=== PATIENT | male | born 1945 | race Caucasian/White ===

== ENCOUNTER 2017-01-01 16:52 | Emergency (ER) | payer MEDICARE, OTHER ==
[~2017-01-01] VITALS: Ht 172.7 cm; Wt 76.4 kg
[2017-01-01] MEDS ORDERED: GUAI200T6 PO (17:09)
[2017-01-01] MEDS ORDERED: SYMB16INH INH (17:09)
[2017-01-01] MEDS ORDERED: DOXA1TAB41 PO (17:09)
[2017-01-01] MEDS ORDERED: ATOR80TA59 PO (17:09)
[2017-01-01] MEDS ORDERED: BUDEPOW26 (17:09)
[2017-01-01] MEDS ORDERED: ASPI1TAB PO (17:09)
[2017-01-01] MEDS ORDERED: METF10004 PO (17:09)
[2017-01-01] MEDS ORDERED: LISI-542 PO (17:09)
[2017-01-01] MEDS ORDERED: SPIR1CAP INH (17:09)
[2017-01-01] MEDS ORDERED: ESOM1CAP5 PO (17:09)
[2017-01-01] MEDS ORDERED: DOXY100C37 PO (18:35)
[2017-01-01 18:55] VITALS: BP 149/78
== END 2017-01-01 19:27 | disposition home or self-care (01) ==
LOC: M ED 16:52
DX: S40.861A Insect bite (nonvenomous) of right upper arm, initial encounter (principal); W57.XXXA Bitten or stung by nonvenomous insect and other nonvenomous arthropods, initial encounter; Y92.89 Other specified places as the place of occurrence of the external cause; Y93.89 Activity, other specified; Y99.8 Other external cause status; I10 Essential (primary) hypertension; J45.909 Unspecified asthma, uncomplicated; Z79.899 Other long term (current) drug therapy; Z79.82 Long term (current) use of aspirin; Z88.8 Allergy status to other drugs, medicaments and biological substances; Z87.891 Personal history of nicotine dependence

== ENCOUNTER → 2021-06-09 | Outpatient (CLI) | payer MEDICARE, OTHER ==
[~2021-06-09] MED LIST: ASPI81TA26 PO; ATOR80TA59 PO; BUDEPOW26; DOXA1TAB41 PO; DOXY-443 PO; ESOM1CAP5 PO; GUAI200T6 PO; LISI5TAB11 PO; METF10004 PO; SPIR1CAP INH; SYMB16INH INH
== END ==
LOC: M RAD 12:12
PROVIDERS: ATTEND Physician Assistant
DX: I65.21 Occlusion and stenosis of right carotid artery (principal)

== ENCOUNTER 2021-07-11 08:56 | Emergency (ER) | payer MEDICARE, OTHER ==
[~2021-07-11] VITALS: Ht 170.2 cm; Wt 74.1 kg
[2021-07-11] MEDS ORDERED: OMEP20TA17 (09:10)
[2021-07-11] MEDS ORDERED: NESI12.5 PO (09:10)
[2021-07-11 10:06] LABS: BASO % 0.4 % (0.0-1.0); EOS # 0.2 10^3/uL (0.0-0.5); EOS % 2.1 % (0.0-3.0); HEMATOCRIT 42.8 % (42.0-52.0); HEMOGLOBIN 13.6 g/dl (13.5-17.5); LYMPH # 1.9 10^3/uL (1.5-5.0); LYMPH % 17.4 % (24.0-44.0); MEAN CORPUSCULAR HEMOGLOBIN 29.6 pg (27.0-33.0); MEAN CORPUSCULAR HGB CONC 31.8 g/dl (32.0-36.5); MONO # 0.6 10^3/uL (0.0-0.8); MONO % 5.4 % (2.0-8.0); NEUTROPHILS # 7.9 10^3/uL (1.5-8.5); NEUTROPHILS % 73.7 % (36.0-66.0); PLATELET COUNT, AUTOMATED 281 10^3/uL (150-450); WHITE BLOOD COUNT 10.7 10^3/uL (4.0-10.0)
[2021-07-11 10:49] LABS: BLOOD UREA NITROGEN 13 MG/DL (7-18); CALCIUM LEVEL 9.1 MG/DL (8.8-10.2); CARBON DIOXIDE LEVEL 28 MEQ/L (21-32); CHLORIDE LEVEL 106 MEQ/L (98-107); CREATININE FOR GFR 1.14 MG/DL (0.70-1.30); GLOMERULAR FILTRATION RATE > 60.0 (>42); GLUCOSE, FASTING 217 MG/DL (70-100); POTASSIUM SERUM 3.5 MEQ/L (3.5-5.1); SODIUM LEVEL 141 MEQ/L (136-145)
[2021-07-11 12:01] VITALS: BP 137/71
== END 2021-07-11 12:03 | disposition home or self-care (01) ==
LOC: M ED 08:56
DX: R55 Syncope and collapse (principal); I10 Essential (primary) hypertension; E11.9 Type 2 diabetes mellitus without complications; J44.9 Chronic obstructive pulmonary disease, unspecified; I25.10 Atherosclerotic heart disease of native coronary artery without angina pectoris; E78.5 Hyperlipidemia, unspecified; Z88.4 Allergy status to anesthetic agent; Z79.899 Other long term (current) drug therapy; Z79.82 Long term (current) use of aspirin; Z79.84 Long term (current) use of oral hypoglycemic drugs

== ENCOUNTER → 2022-04-23 | Outpatient (CLI) | payer MEDICARE, OTHER ==
[~2022-04-23] MED LIST changes: +NESI12.5 PO; +OMEP20TA17
== END ==
LOC: M RAD 13:25
PROVIDERS: ATTEND Physician Assistant
DX: I65.21 Occlusion and stenosis of right carotid artery (principal)

== ENCOUNTER → 2022-05-15 | Outpatient (CLI) | payer MEDICARE, OTHER ==
[2022-05-15 16:27] LABS: BLOOD UREA NITROGEN 19 MG/DL (9-23); CALCIUM LEVEL 9.8 MG/DL (8.3-10.6); CARBON DIOXIDE LEVEL 31 MMOL/L (20-31); CHLORIDE LEVEL 102 MMOL/L (98-107); CREATININE FOR GFR 0.83 MG/DL (0.70-1.30); GLOMERULAR FILTRATION RATE > 60.0 (>42); GLUCOSE, FASTING 153 MG/DL (74-106); POTASSIUM SERUM 4.6 MMOL/L (3.5-5.1); SODIUM LEVEL 138 MMOL/L (136-145)
== END ==
LOC: M PLALAB 12:57
PROVIDERS: ATTEND Physician Assistant
DX: R09.89 Other specified symptoms and signs involving the circulatory and respiratory systems (principal)

== ENCOUNTER → 2022-05-19 | Outpatient (CLI) | payer MEDICARE, OTHER ==
[~2022-05-19] MED LIST changes: +ISOVUE-370 76% 100ML VIAL As Ordered ONE
== END ==
LOC: M RAD 13:23
PROVIDERS: ATTEND Physician Assistant
DX: R09.89 Other specified symptoms and signs involving the circulatory and respiratory systems (principal)
CPT/HCPCS: 70498; Q9967

== ENCOUNTER 2022-06-17 10:29 | Inpatient (IN) | payer MEDICARE, OTHER ==
[~2022-06-17] VITALS: Ht 172.7 cm; Wt 65.8 kg
[~2022-06-17 10:29] MED LIST changes: -ISOVUE-370 76% 100ML VIAL As Ordered ONE
[2022-06-17] MEDS ORDERED: OMEP40CA4 PO (10:44)
[2022-06-17 12:05] LABS: BASO % 0.2 % (0.0-1.0); EOS # 0.1 10^3/uL (0.0-0.5); HEMATOCRIT 42.1 % (42.0-52.0); HEMOGLOBIN 13.5 g/dl (13.5-17.5); LYMPH # 2.1 10^3/uL (1.5-5.0); LYMPH % 18.6 % (24.0-44.0); MEAN CORPUSCULAR HEMOGLOBIN 29.3 pg (27.0-33.0); MEAN CORPUSCULAR HGB CONC 32.1 g/dl (32.0-36.5); MEAN CORPUSCULAR VOLUME 91.3 fl (80.0-96.0); MONO # 0.6 10^3/uL (0.0-0.8); MONO % 5.2 % (2.0-8.0); NEUTROPHILS # 8.4 10^3/uL (1.5-8.5); NEUTROPHILS % 74.6 % (36.0-66.0); PLATELET COUNT, AUTOMATED 237 10^3/uL (150-450); RED BLOOD COUNT 4.61 10^6/uL (4.30-6.10); WHITE BLOOD COUNT 11.3 10^3/uL (4.0-10.0)
[2022-06-17 12:15] LABS: INR 0.98; PROTHROMBIN TIME 13.2 SECONDS (12.5-14.5)
[2022-06-17 12:16] LABS: PARTIAL THROMBOPLASTIN TIME 29.6 SECONDS (24.8-34.2)
[2022-06-17 12:27] LABS: ERYTHROCYTE SEDIMENTATION RATE 27 mm/hr (0-20)
[2022-06-17 12:48] LABS: RSV AMPLIFICATION NEGATIVE (NEGATIVE)
[2022-06-17 13:35] LABS: CK-MB VALUE MASS < 1.0 NG/ML (<3.6); LIPASE 18 U/L (12-53)
[2022-06-17 13:37] LABS: C REACTIVE PROTEIN QUANTITATIV < 0.40 MG/DL (<1.0); CPK CREATINE PHOSPHOKINASE 55 U/L (46-171); MB/CK RELATIVE INDEX 1.81 (< OR =4)
[2022-06-17 13:39] LABS: THYROID STIMULATING HORMONE 2.363 uIU/ML (0.55-4.78)
[2022-06-17 13:40] LABS: ALBUMIN 3.8 G/DL (3.2-5.2); ALKALINE PHOSPHATASE 59 U/L (46-116); ALT/SGPT 23 U/L (7.0-40); AST/SGOT 14 U/L (<34); BILIRUBIN,DIRECT 0.2 MG/DL (<0.4); BILIRUBIN,TOTAL 0.6 MG/DL (0.3-1.2); BLOOD UREA NITROGEN 14 MG/DL (9-23); CALCIUM LEVEL 9.1 MG/DL (8.3-10.6); CARBON DIOXIDE LEVEL 26 MMOL/L (20-31); CHLORIDE LEVEL 106 MMOL/L (98-107); CREATININE FOR GFR 0.68 MG/DL (0.70-1.30); GLOMERULAR FILTRATION RATE > 60.0 (>42); GLUCOSE, FASTING 105 MG/DL (74-106); POTASSIUM SERUM 4.2 MMOL/L (3.5-5.1); SODIUM LEVEL 139 MMOL/L (136-145); TOTAL PROTEIN 6.7 G/DL (5.7-8.2)
[2022-06-17 14:40] LABS: CK-MB VALUE MASS < 1.0 NG/ML (<3.6)
[2022-06-17 14:41] LABS: CPK CREATINE PHOSPHOKINASE 55 U/L (46-171); MB/CK RELATIVE INDEX 1.81 (< OR =4)
[2022-06-17] MEDS ORDERED: ISOVUE-370 76% 100ML VIAL As Ordered ONE (15:26)
[2022-06-17] MEDS: INSULIN LISPRO (NovoLOG) PER UNIT SC SCH ×2 (17:30→20:22)
[2022-06-17] MEDS ORDERED: GLUCOSE 4GM CHEW TABLET PO PRN (18:10)
[2022-06-17] MEDS ORDERED: GLUCAGON INJ 1MG VIAL SC PRN (18:10)
[2022-06-17] MEDS ORDERED: DEXTROSE 50% 50ML SYRINGE IV PRN (18:10)
[2022-06-17] MEDS: LEVEMIR (INSULIN DETEMIR) 1 UNITS/0.01ML SC SCH ×2 (18:10→20:23)
[2022-06-17] MEDS ORDERED: IPRATROPIUM 0.5MG/ALBUTEROL 2.5MG INH SOL UD 3ML (DUONEB) NEB PRN (18:35)
[2022-06-17] MEDS ORDERED: HOME MED LIST COMPLETE! XX SCH (18:55)
[2022-06-17] MEDS ORDERED: CARVedilol 12.5 MG TAB PO ONE (19:30)
[2022-06-17] MEDS ORDERED: CLOPIDOGREL 75 MG TAB PO ONE (19:40)
[2022-06-17 19:56] VITALS: BP 137/69
[2022-06-17 20:00] VITALS: BP 137/69
[2022-06-17] MEDS ORDERED: IPRATROPIUM 0.5MG/ALBUTEROL 2.5MG INH SOL UD 3ML (DUONEB) NEB SCH (20:00)
[2022-06-17] MEDS: OMEPRAZOLE 20MG CAP PO SCH (20:20)
[2022-06-17] MEDS: ATORVASTATIN 20 MG TAB PO SCH (20:21)
[2022-06-17] MEDS: CARVedilol 12.5 MG TAB PO SCH (20:21)
[2022-06-17 23:47] VITALS: BP 129/66
[2022-06-18] VITALS (7 sets, daily range): BP systolic 122–151; BP diastolic 59–72
[2022-06-18 06:13] LABS: HEMATOCRIT 40.7 % (42.0-52.0); HEMOGLOBIN 13.1 g/dl (13.5-17.5); MEAN CORPUSCULAR HEMOGLOBIN 29.2 pg (27.0-33.0); MEAN CORPUSCULAR HGB CONC 32.2 g/dl (32.0-36.5); MEAN CORPUSCULAR VOLUME 90.8 fl (80.0-96.0); PLATELET COUNT, AUTOMATED 220 10^3/uL (150-450); RED BLOOD COUNT 4.48 10^6/uL (4.30-6.10); WHITE BLOOD COUNT 9.1 10^3/uL (4.0-10.0)
[2022-06-18 06:35] LABS: BLOOD UREA NITROGEN 13 MG/DL (9-23); CALCIUM LEVEL 9.4 MG/DL (8.3-10.6); CARBON DIOXIDE LEVEL 26 MMOL/L (20-31); CHLORIDE LEVEL 103 MMOL/L (98-107); CHOLESTEROL LEVEL 78 MG/DL (<200); CHOLESTEROL RISK RATIO 2.43 (<5); CREATININE FOR GFR 0.79 MG/DL (0.70-1.30); GLOMERULAR FILTRATION RATE > 60.0 (>42); GLUCOSE, FASTING 115 MG/DL (74-106); HEMOGLOBIN A1c 6.7 % (4.0-6.0); LDL CHOLESTEROL 22.2 MG/DL (<100); POTASSIUM SERUM 4.1 MMOL/L (3.5-5.1); SODIUM LEVEL 138 MMOL/L (136-145); TRIGLYCERIDES LEVEL 119 MG/DL (<150)
[2022-06-18] MEDS ORDERED: COMBIVENT RESPIMAT 100-20MCG INHALER 4GM INH PRN (07:30)
[2022-06-18] MEDS ORDERED: TIOTROPIUM INHALER/CAPSULE (SPIRIVA) INH SCH (08:00)
[2022-06-18] MEDS: SYMBICORT 160/4.5MCG INHALER 6GM INH SCH ×2 (08:03→19:27)
[2022-06-18] MEDS: ASPIRIN 81MG ENTERIC TABLET PO SCH (08:28)
[2022-06-18] MEDS: CARVedilol 12.5 MG TAB PO SCH ×2 (08:29→19:51)
[2022-06-18] MEDS: CLOPIDOGREL 75 MG TAB PO SCH (08:29)
[2022-06-18] MEDS: INSULIN LISPRO (NovoLOG) PER UNIT SC SCH ×4 (08:33→19:55)
[2022-06-18] MEDS ORDERED: MECLIZINE 25 MG TABLET PO PRN (18:05)
[2022-06-18] MEDS: LEVEMIR (INSULIN DETEMIR) 1 UNITS/0.01ML SC SCH (19:56)
[2022-06-18] MEDS: OMEPRAZOLE 20MG CAP PO SCH (20:36)
[2022-06-18] MEDS: ATORVASTATIN 20 MG TAB PO SCH (20:36)
[2022-06-19 04:14] VITALS: BP 126/72
[2022-06-19 05:40] LABS: HEMATOCRIT 39.9 % (42.0-52.0); HEMOGLOBIN 13.2 g/dl (13.5-17.5); MEAN CORPUSCULAR HEMOGLOBIN 29.8 pg (27.0-33.0); MEAN CORPUSCULAR HGB CONC 33.1 g/dl (32.0-36.5); MEAN CORPUSCULAR VOLUME 90.1 fl (80.0-96.0); PLATELET COUNT, AUTOMATED 240 10^3/uL (150-450); RED BLOOD COUNT 4.43 10^6/uL (4.30-6.10); WHITE BLOOD COUNT 9.5 10^3/uL (4.0-10.0)
[2022-06-19 06:07] LABS: BLOOD UREA NITROGEN 18 MG/DL (9-23); CALCIUM LEVEL 9.3 MG/DL (8.3-10.6); CARBON DIOXIDE LEVEL 26 MMOL/L (20-31); CHLORIDE LEVEL 105 MMOL/L (98-107); CREATININE FOR GFR 0.85 MG/DL (0.70-1.30); GLOMERULAR FILTRATION RATE > 60.0 (>42); GLUCOSE, FASTING 128 MG/DL (74-106); POTASSIUM SERUM 4.2 MMOL/L (3.5-5.1); SODIUM LEVEL 139 MMOL/L (136-145)
[2022-06-19] MEDS: SYMBICORT 160/4.5MCG INHALER 6GM INH SCH ×2 (07:24→19:51)
[2022-06-19 08:12] VITALS: BP 138/69
[2022-06-19] MEDS: ASPIRIN 81MG ENTERIC TABLET PO SCH (08:16)
[2022-06-19] MEDS: CLOPIDOGREL 75 MG TAB PO SCH (08:17)
[2022-06-19] MEDS: CARVedilol 12.5 MG TAB PO SCH ×3 (08:17→18:42)
[2022-06-19] MEDS: INSULIN LISPRO (NovoLOG) PER UNIT SC SCH ×4 (08:18→20:40)
[2022-06-19 12:00] VITALS: BP 160/72
[2022-06-19 15:57] VITALS: BP 126/72
[2022-06-19 19:50] VITALS: BP 126/64
[2022-06-19] MEDS: LEVEMIR (INSULIN DETEMIR) 1 UNITS/0.01ML SC SCH (20:41)
[2022-06-19] MEDS: OMEPRAZOLE 20MG CAP PO SCH (20:49)
[2022-06-19] MEDS: ATORVASTATIN 20 MG TAB PO SCH (20:50)
[2022-06-20] VITALS (8 sets, daily range): BP systolic 135–158; BP diastolic 64–70
[2022-06-20] MEDS: CARVedilol 12.5 MG TAB PO SCH ×2 (06:00)
[2022-06-20 06:39] LABS: HEMATOCRIT 39.3 % (42.0-52.0); HEMOGLOBIN 12.7 g/dl (13.5-17.5); MEAN CORPUSCULAR HEMOGLOBIN 29.7 pg (27.0-33.0); MEAN CORPUSCULAR HGB CONC 32.3 g/dl (32.0-36.5); MEAN CORPUSCULAR VOLUME 91.8 fl (80.0-96.0); PLATELET COUNT, AUTOMATED 234 10^3/uL (150-450); RED BLOOD COUNT 4.28 10^6/uL (4.30-6.10); WHITE BLOOD COUNT 9.4 10^3/uL (4.0-10.0)
[2022-06-20 06:58] LABS: BLOOD UREA NITROGEN 19 MG/DL (9-23); CALCIUM LEVEL 9.2 MG/DL (8.3-10.6); CARBON DIOXIDE LEVEL 26 MMOL/L (20-31); CHLORIDE LEVEL 106 MMOL/L (98-107); GLOMERULAR FILTRATION RATE > 60.0 (>42); GLUCOSE, FASTING 138 MG/DL (74-106); POTASSIUM SERUM 4.3 MMOL/L (3.5-5.1); SODIUM LEVEL 140 MMOL/L (136-145)
[2022-06-20] MEDS: SYMBICORT 160/4.5MCG INHALER 6GM INH SCH ×2 (07:11→19:54)
[2022-06-20] MEDS: ASPIRIN 81MG ENTERIC TABLET PO SCH (07:33)
[2022-06-20] MEDS: INSULIN LISPRO (NovoLOG) PER UNIT SC SCH ×4 (07:33→20:29)
[2022-06-20] MEDS: CLOPIDOGREL 75 MG TAB PO SCH (07:34)
[2022-06-20 09:32] LABS: MAGNESIUM LEVEL 1.6 MG/DL (1.8-2.4)
[2022-06-20] MEDS ORDERED: MAG SULF 1GM/100ML (MAG RUN) 1 GM in IV 1 EA IV ONE ×2 (10:00→18:55)
[2022-06-20] MEDS ORDERED: CALCIUM GLUCONATE 1,000 MG in D5W MINI-BAG PLUS 100 ML IV ONE (19:00)
[2022-06-20 19:55] LABS: CK-MB VALUE MASS < 1.0 NG/ML (<3.6); POTASSIUM SERUM 4.3 MMOL/L (3.5-5.1)
[2022-06-20 19:57] LABS: CPK CREATINE PHOSPHOKINASE 75 U/L (46-171); MB/CK RELATIVE INDEX 1.33 (< OR =4)
[2022-06-20] MEDS: **hydrALAZINE** 10 MG TAB PO SCH (20:22)
[2022-06-20] MEDS: LEVEMIR (INSULIN DETEMIR) 1 UNITS/0.01ML SC SCH (20:29)
[2022-06-20] MEDS: ATORVASTATIN 20 MG TAB PO SCH (20:33)
[2022-06-20] MEDS: MAGNESIUM OXIDE 400MG TAB (MAG-OX) PO SCH (20:33)
[2022-06-20] MEDS: OMEPRAZOLE 20MG CAP PO SCH (20:33)
[2022-06-21] VITALS (10 sets, daily range): BP systolic 130–156; BP diastolic 52–78
[2022-06-21 04:30] LABS: HEMATOCRIT 39.6 % (42.0-52.0); HEMOGLOBIN 13.1 g/dl (13.5-17.5); MEAN CORPUSCULAR HGB CONC 33.1 g/dl (32.0-36.5); MEAN CORPUSCULAR VOLUME 90.6 fl (80.0-96.0); PLATELET COUNT, AUTOMATED 251 10^3/uL (150-450); RED BLOOD COUNT 4.37 10^6/uL (4.30-6.10); WHITE BLOOD COUNT 11.7 10^3/uL (4.0-10.0)
[2022-06-21 04:55] LABS: BLOOD UREA NITROGEN 20 MG/DL (9-23); CALCIUM LEVEL 8.8 MG/DL (8.3-10.6); CARBON DIOXIDE LEVEL 28 MMOL/L (20-31); CHLORIDE LEVEL 105 MMOL/L (98-107); CREATININE FOR GFR 0.79 MG/DL (0.70-1.30); GLOMERULAR FILTRATION RATE > 60.0 (>42); GLUCOSE, FASTING 144 MG/DL (74-106); POTASSIUM SERUM 4.3 MMOL/L (3.5-5.1); SODIUM LEVEL 138 MMOL/L (136-145)
[2022-06-21] MEDS: SYMBICORT 160/4.5MCG INHALER 6GM INH SCH ×2 (07:16→19:24)
[2022-06-21] MEDS: INSULIN LISPRO (NovoLOG) PER UNIT SC SCH ×4 (07:49→21:00)
[2022-06-21] MEDS: **hydrALAZINE** 10 MG TAB PO SCH ×5 (07:49→21:00)
[2022-06-21] MEDS: MAGNESIUM OXIDE 400MG TAB (MAG-OX) PO SCH ×2 (07:50→21:19)
[2022-06-21] MEDS: CLOPIDOGREL 75 MG TAB PO SCH (07:50)
[2022-06-21] MEDS: ASPIRIN 81MG ENTERIC TABLET PO SCH (07:50)
[2022-06-21] MEDS ORDERED: KETOROLAC 30 MG/ML 1ML VIAL IV ONE (09:00)
[2022-06-21] MEDS ORDERED: HYDROMORPHONE HCL 0.5 MG/ 0.5 ML SYRINGE IV ONE (09:00)
[2022-06-21] MEDS: LEVEMIR (INSULIN DETEMIR) 1 UNITS/0.01ML SC SCH (21:00)
[2022-06-21] MEDS: ATORVASTATIN 20 MG TAB PO SCH (21:18)
[2022-06-21] MEDS: OMEPRAZOLE 20MG CAP PO SCH (21:18)
[2022-06-22] VITALS (10 sets, daily range): BP systolic 120–164; BP diastolic 52–71
[2022-06-22 05:30] LABS: HEMATOCRIT 40.9 % (42.0-52.0); HEMOGLOBIN 13.2 g/dl (13.5-17.5); MEAN CORPUSCULAR HEMOGLOBIN 29.3 pg (27.0-33.0); MEAN CORPUSCULAR HGB CONC 32.3 g/dl (32.0-36.5); MEAN CORPUSCULAR VOLUME 90.9 fl (80.0-96.0); PLATELET COUNT, AUTOMATED 245 10^3/uL (150-450)
[2022-06-22 05:57] LABS: BLOOD UREA NITROGEN 17 MG/DL (9-23); CARBON DIOXIDE LEVEL 28 MMOL/L (20-31); CHLORIDE LEVEL 105 MMOL/L (98-107); CREATININE FOR GFR 0.73 MG/DL (0.70-1.30); GLOMERULAR FILTRATION RATE > 60.0 (>42); GLUCOSE, FASTING 131 MG/DL (74-106); POTASSIUM SERUM 4.3 MMOL/L (3.5-5.1); SODIUM LEVEL 139 MMOL/L (136-145)
[2022-06-22] MEDS ORDERED: D5W/0.45% SODIUM CHLORIDE 1,000 ML IV SCH (06:00)
[2022-06-22] MEDS: INSULIN LISPRO (NovoLOG) PER UNIT SC SCH ×4 (07:30→21:00)
[2022-06-22] MEDS: SYMBICORT 160/4.5MCG INHALER 6GM INH SCH ×2 (07:46→19:56)
[2022-06-22] MEDS: **hydrALAZINE** 10 MG TAB PO SCH ×2 (08:49→17:18)
[2022-06-22] MEDS: ASPIRIN 81MG ENTERIC TABLET PO SCH (08:50)
[2022-06-22] MEDS: CLOPIDOGREL 75 MG TAB PO SCH (08:50)
[2022-06-22] MEDS: MAGNESIUM OXIDE 400MG TAB (MAG-OX) PO SCH ×2 (08:50→21:00)
[2022-06-22] MEDS ORDERED: propofoL 200 MG/20 ML VIAL As Ordered ONE ×2 (10:57→11:23)
[2022-06-22] MEDS ORDERED: LIDOCAINE 2% 100MG/5ML SDV (FOR ANES.) As Ordered ONE (10:57)
[2022-06-22] MEDS ORDERED: ROCURONIUM BROMIDE 50MG/5ML VIAL As Ordered ONE ×2 (10:57→13:05)
[2022-06-22] MEDS ORDERED: MIDAZOLAM INJ 2MG/2ML VIAL As Ordered ONE (10:58)
[2022-06-22] MEDS ORDERED: fentaNYL 250 MCG/5 ML INJECTION As Ordered ONE (10:58)
[2022-06-22] MEDS ORDERED: PHENYLEPHRINE 10MG/ML 1ML VIAL As Ordered ONE (11:03)
[2022-06-22] MEDS ORDERED: HEPARIN SOD (PORCINE) 5000UNITS/ML 1ML VIAL/SYRINGE As Ordered ONE ×2 (11:06→13:29)
[2022-06-22] MEDS ORDERED: BUPIVACAINE/EPIN 0.25% 30ML VIAL As Ordered ONE (11:06)
[2022-06-22] MEDS ORDERED: THROMBIN 20,000 UNITS KIT As Ordered ONE (11:06)
[2022-06-22] MEDS ORDERED: LIDOCAINE 1% SDV 30ML VIAL As Ordered ONE (11:06)
[2022-06-22] MEDS ORDERED: NITROGLYCERIN IN D5W 25MG/250ML (100MCG/ML) As Ordered ONE (11:17)
[2022-06-22] MEDS ORDERED: ESMOLOL INJ 100MG/10ML VIAL As Ordered ONE (11:21)
[2022-06-22] MEDS ORDERED: PHENYLephrine 500MCG 5ML (100MCG/ML) SYRINGE As Ordered ONE (11:23)
[2022-06-22] MEDS ORDERED: ePHEDrine SULFATE 25 MG/5 ML(5MG/ML) SYRINGE As Ordered ONE (11:23)
[2022-06-22] MEDS ORDERED: PAPAVERINE HCL 60MG 2ML VIAL (30MG/ML) As Ordered ONE (12:15)
[2022-06-22] MEDS ORDERED: VERAPAMIL 5MG/2ML VIAL As Ordered ONE (12:17)
[2022-06-22] MEDS ORDERED: ceFAZolin 2 GM/D5W 50 ML IV BAG As Ordered ONE (12:41)
[2022-06-22] MEDS ORDERED: ACETAMINOPHEN 1000MG 100ML IV BAG As Ordered ONE (13:13)
[2022-06-22] MEDS ORDERED: ONDANSETRON 4MG 2ML VIAL As Ordered ONE (13:13)
[2022-06-22] MEDS ORDERED: GLYCOPYRROLATE INJ 0.2 MG/ML 2 ML VIAL As Ordered ONE (13:24)
[2022-06-22] MEDS ORDERED: PROTAMINE SULF 50MG 5ML VIAL As Ordered ONE (15:02)
[2022-06-22] MEDS ORDERED: HYDROMORPHONE HCL 0.5 MG/ 0.5 ML SYRINGE IV PRN (15:50)
[2022-06-22] MEDS ORDERED: oxyCODONE 5MG TAB PO PRN ×2 (15:50→17:30)
[2022-06-22] MEDS ORDERED: ONDANSETRON 4MG 2ML VIAL IV PRN (15:50)
[2022-06-22] MEDS ORDERED: fentaNYL 100 MCG/2 ML INJECTION IV PRN (15:50)
[2022-06-22] MEDS ORDERED: hydrALAZINE 20MG/ML 1ML VIAL IV SCH (17:05)
[2022-06-22] MEDS ORDERED: hydrALAZINE 20MG/ML 1ML VIAL IV PRN (17:25)
[2022-06-22] MEDS: OMEPRAZOLE 20MG CAP PO SCH (21:00)
[2022-06-22] MEDS: ATORVASTATIN 20 MG TAB PO SCH (21:00)
[2022-06-22] MEDS: LEVEMIR (INSULIN DETEMIR) 1 UNITS/0.01ML SC SCH (21:00)
[2022-06-22] MEDS: HYDROMORPHONE HCL 0.5 MG/ 0.5 ML SYRINGE IV PRN (21:50)
[2022-06-23] VITALS (17 sets, daily range): BP systolic 92–168; BP diastolic 52–74
[2022-06-23] MEDS: HYDROMORPHONE HCL 0.5 MG/ 0.5 ML SYRINGE IV PRN ×3 (04:56→22:02)
[2022-06-23 04:59] LABS: BASO % 0.1 % (0.0-1.0); EOS % 0.1 % (0.0-3.0); HEMATOCRIT 38.8 % (42.0-52.0); HEMOGLOBIN 12.8 g/dl (13.5-17.5); LYMPH # 1.9 10^3/uL (1.5-5.0); LYMPH % 12.6 % (24.0-44.0); MEAN CORPUSCULAR HEMOGLOBIN 29.6 pg (27.0-33.0); MEAN CORPUSCULAR VOLUME 89.8 fl (80.0-96.0); MONO # 0.8 10^3/uL (0.0-0.8); MONO % 5.5 % (2.0-8.0); NEUTROPHILS # 12.5 10^3/uL (1.5-8.5); NEUTROPHILS % 81.3 % (36.0-66.0); PLATELET COUNT, AUTOMATED 254 10^3/uL (150-450); RED BLOOD COUNT 4.32 10^6/uL (4.30-6.10); WHITE BLOOD COUNT 15.3 10^3/uL (4.0-10.0)
[2022-06-23 05:24] LABS: ALBUMIN 3.7 G/DL (3.2-5.2); ALKALINE PHOSPHATASE 64 U/L (46-116); ALT/SGPT 14 U/L (7.0-40); AST/SGOT 16 U/L (<34); BILIRUBIN,TOTAL 0.6 MG/DL (0.3-1.2); BLOOD UREA NITROGEN 12 MG/DL (9-23); CALCIUM LEVEL 8.3 MG/DL (8.3-10.6); CARBON DIOXIDE LEVEL 25 MMOL/L (20-31); CHLORIDE LEVEL 107 MMOL/L (98-107); CREATININE FOR GFR 0.68 MG/DL (0.70-1.30); GLOMERULAR FILTRATION RATE > 60.0 (>42); GLUCOSE, FASTING 118 MG/DL (74-106); MAGNESIUM LEVEL 1.7 MG/DL (1.8-2.4); POTASSIUM SERUM 4.2 MMOL/L (3.5-5.1); SODIUM LEVEL 138 MMOL/L (136-145); TOTAL PROTEIN 6.3 G/DL (5.7-8.2)
[2022-06-23] MEDS ORDERED: MAG SULF 1GM/100ML (MAG RUN) 1 GM in IV 1 EA IV ONE (06:00)
[2022-06-23] MEDS ORDERED: guaiFENesin 200 MG TAB PO PRN (07:35)
[2022-06-23] MEDS: SYMBICORT 160/4.5MCG INHALER 6GM INH SCH ×2 (08:10→18:55)
[2022-06-23] MEDS: TIOTROPIUM INHALER/CAPSULE (SPIRIVA) INH SCH (08:33)
[2022-06-23] MEDS: INSULIN LISPRO (NovoLOG) PER UNIT SC SCH ×4 (08:47→20:26)
[2022-06-23] MEDS: CLOPIDOGREL 75 MG TAB PO SCH (08:48)
[2022-06-23] MEDS: ASPIRIN 81MG ENTERIC TABLET PO SCH (08:48)
[2022-06-23] MEDS: MAGNESIUM OXIDE 400MG TAB (MAG-OX) PO SCH ×2 (08:48→20:22)
[2022-06-23] MEDS: DOXAZOSIN MESYLATE 1 MG TAB PO SCH (09:29)
[2022-06-23] MEDS: HEPARIN SOD (PORCINE) 5000UNITS/ML 1ML VIAL/SYRINGE SQ SCH ×2 (14:13→21:30)
[2022-06-23] MEDS ORDERED: ONDANSETRON 4MG TAB PO PRN (16:45)
[2022-06-23] MEDS: OMEPRAZOLE 20MG CAP PO SCH (20:22)
[2022-06-23] MEDS: ATORVASTATIN 20 MG TAB PO SCH (20:22)
[2022-06-23] MEDS: LEVEMIR (INSULIN DETEMIR) 1 UNITS/0.01ML SC SCH (20:26)
[2022-06-24] VITALS (8 sets, daily range): BP systolic 118–144; BP diastolic 59–75
[2022-06-24 04:22] LABS: HEMOGLOBIN 13.2 g/dl (13.5-17.5); MEAN CORPUSCULAR HEMOGLOBIN 29.7 pg (27.0-33.0); MEAN CORPUSCULAR HGB CONC 32.2 g/dl (32.0-36.5); MEAN CORPUSCULAR VOLUME 92.3 fl (80.0-96.0); PLATELET COUNT, AUTOMATED 251 10^3/uL (150-450); RED BLOOD COUNT 4.44 10^6/uL (4.30-6.10); WHITE BLOOD COUNT 12.4 10^3/uL (4.0-10.0)
[2022-06-24 04:51] LABS: BLOOD UREA NITROGEN 16 MG/DL (9-23); CALCIUM LEVEL 8.7 MG/DL (8.3-10.6); CARBON DIOXIDE LEVEL 27 MMOL/L (20-31); CHLORIDE LEVEL 105 MMOL/L (98-107); CREATININE FOR GFR 0.82 MG/DL (0.70-1.30); GLOMERULAR FILTRATION RATE > 60.0 (>42); GLUCOSE, FASTING 138 MG/DL (74-106); PHOSPHORUS LEVEL 3.7 MG/DL (2.4-5.1); POTASSIUM SERUM 4.7 MMOL/L (3.5-5.1); SODIUM LEVEL 139 MMOL/L (136-145)
[2022-06-24] MEDS: HEPARIN SOD (PORCINE) 5000UNITS/ML 1ML VIAL/SYRINGE SQ SCH (05:39)
[2022-06-24] MEDS: INSULIN LISPRO (NovoLOG) PER UNIT SC SCH (07:30)
[2022-06-24] MEDS: TIOTROPIUM INHALER/CAPSULE (SPIRIVA) INH SCH (07:51)
[2022-06-24] MEDS: SYMBICORT 160/4.5MCG INHALER 6GM INH SCH (07:51)
[2022-06-24] MEDS: ASPIRIN 81MG ENTERIC TABLET PO SCH (08:15)
[2022-06-24] MEDS: CLOPIDOGREL 75 MG TAB PO SCH (08:15)
[2022-06-24] MEDS: DOXAZOSIN MESYLATE 1 MG TAB PO SCH (08:16)
[2022-06-24] MEDS: MAGNESIUM OXIDE 400MG TAB (MAG-OX) PO SCH (08:16)
[2022-06-24] MEDS ORDERED: CLOP75TA2 PO (09:37)
== END 2022-06-24 13:30 | disposition home health service (06) | DRG 39 ==
LOC: M ED 10:29 → M ED INP 17:57 → ENRESERV 19:15 → CANRESERV 19:15 → ENRESERV 19:19 → M PCU 19:47 → M ICU 06-22 17:24
PROVIDERS: ADMIT General Practice; ATTEND Internal Medicine
PROC: 03CM0ZZ Extirpation of Matter from Right External Carotid Artery, Open Approach (ICD-10-PCS; 2022-06-22)
PROC: 03CH0ZZ Extirpation of Matter from Right Common Carotid Artery, Open Approach (ICD-10-PCS; 2022-06-22)
PROC: 03UM0KZ Supplement Right External Carotid Artery with Nonautologous Tissue Substitute, Open Approach (ICD-10-PCS; 2022-06-22)
PROC: 03UH0KZ Supplement Right Common Carotid Artery with Nonautologous Tissue Substitute, Open Approach (ICD-10-PCS; 2022-06-22)
PROC: 03CK0ZZ Extirpation of Matter from Right Internal Carotid Artery, Open Approach (ICD-10-PCS; principal; 2022-06-22 11:30)
DX: I65.21 Occlusion and stenosis of right carotid artery (principal); I25.10 Atherosclerotic heart disease of native coronary artery without angina pectoris; J43.9 Emphysema, unspecified; E11.51 Type 2 diabetes mellitus with diabetic peripheral angiopathy without gangrene; J45.909 Unspecified asthma, uncomplicated; E11.42 Type 2 diabetes mellitus with diabetic polyneuropathy; E78.5 Hyperlipidemia, unspecified; R63.0 Anorexia; R55 Syncope and collapse; I10 Essential (primary) hypertension; Z79.82 Long term (current) use of aspirin; Z87.891 Personal history of nicotine dependence; Z88.8 Allergy status to other drugs, medicaments and biological substances; Z79.84 Long term (current) use of oral hypoglycemic drugs; Z79.899 Other long term (current) drug therapy

== ENCOUNTER → 2022-08-05 | Outpatient (CLI) | payer MEDICARE, OTHER ==
[~2022-08-05] MED LIST changes: +CLOP75TA2 PO; +OMEP40CA4 PO
== END ==
LOC: M RAD 12:08
PROVIDERS: ATTEND Surgery Vascular Surgery
DX: I65.23 Occlusion and stenosis of bilateral carotid arteries (principal)

== ENCOUNTER → 2023-03-26 | Outpatient (CLI) | payer MEDICARE, OTHER ==
[2023-03-26 12:21] LABS: HEMATOCRIT 45.6 % (42.0-52.0); HEMOGLOBIN 14.5 g/dl (13.5-17.5); MEAN CORPUSCULAR HEMOGLOBIN 28.2 pg (27.0-33.0); MEAN CORPUSCULAR HGB CONC 31.8 g/dl (32.0-36.5); MEAN CORPUSCULAR VOLUME 88.5 fl (80.0-96.0); PLATELET COUNT, AUTOMATED 292 10^3/uL (150-450); RED BLOOD COUNT 5.15 10^6/uL (4.30-6.10); WHITE BLOOD COUNT 13.5 10^3/uL (4.0-10.0)
[2023-03-26 12:47] LABS: PROSTATIC SPECIFIC AG MONITOR 0.38 NG/ML (< 4.00)
[2023-03-26 12:49] LABS: ALBUMIN 4.1 G/DL (3.2-5.2); ALKALINE PHOSPHATASE 82 U/L (46-116); ALT/SGPT 19 U/L (7.0-40); AST/SGOT 15 U/L (<34); BILIRUBIN,DIRECT 0.3 MG/DL (<0.4); BILIRUBIN,TOTAL 0.7 MG/DL (0.3-1.2); BLOOD UREA NITROGEN 19 MG/DL (9-23); CALCIUM LEVEL 10.2 MG/DL (8.3-10.6); CARBON DIOXIDE LEVEL 28 MMOL/L (20-31); CHLORIDE LEVEL 101 MMOL/L (98-107); CHOLESTEROL LEVEL 84 MG/DL (<200); CHOLESTEROL RISK RATIO 2.19 (<5); CREATININE FOR GFR 0.97 MG/DL (0.70-1.30); GLOMERULAR FILTRATION RATE > 60.0 (>42); GLUCOSE, FASTING 169 MG/DL (74-106); HDL CHOLESTEROL 38.3 MG/DL (>40); LDL CHOLESTEROL 26.1 MG/DL (<100); NON-HDL-C 45.7 MG/DL; POTASSIUM SERUM 4.4 MMOL/L (3.5-5.1); SODIUM LEVEL 137 MMOL/L (136-145); TOTAL PROTEIN 7.6 G/DL (5.7-8.2); TRIGLYCERIDES LEVEL 98 MG/DL (<150)
[2023-03-26 12:51] LABS: THYROID STIMULATING HORMONE 3.003 uIU/ML (0.55-4.78)
[2023-03-26 13:10] LABS: HEMOGLOBIN A1c 6.7 % (4.0-6.0)
== END ==
LOC: M RAD 11:20
PROVIDERS: ATTEND Family Medicine
DX: J18.0 Bronchopneumonia, unspecified organism (principal); J44.9 Chronic obstructive pulmonary disease, unspecified; N40.0 Benign prostatic hyperplasia without lower urinary tract symptoms; R53.83 Other fatigue; Z79.899 Other long term (current) drug therapy

== ENCOUNTER → 2024-03-24 | Outpatient (CLI) | payer OTHER, MEDICARE ==
[~2024-03-24] MED LIST changes: +DOXY-441 PO; -DOXY-443 PO; +ESOM1CAP20 PO; -ESOM1CAP5 PO
== END ==
LOC: M PLARAD 13:42
PROVIDERS: ATTEND Internal Medicine
DX: H53.459 Other localized visual field defect, unspecified eye (principal); I67.82 Cerebral ischemia